=== PATIENT | male | born 1965 | race Caucasian/White ===

== ENCOUNTER 2021-02-19 13:39 | Observation (INO) | payer OTHER ==
[~2021-02-19] VITALS: Ht 182.9 cm; Wt 167.9 kg
[2021-02-19 14:04] LABS: HEMOGLOBIN 13.6 gm/dl (14.0-17.5); RED BLOOD COUNT 4.56 M/UL (4.20-5.50)
[2021-02-19 14:23] LABS: BUN/CREATININE RATIO 13 (0-10)
[2021-02-19] MEDS ORDERED: AMARYL 2MG TABLE2 MG PO (20:11)
[2021-02-19] MEDS ORDERED: HYDROCHLOROTHIA25 MG PO (20:12)
[2021-02-19] MEDS ORDERED: BENAZEPRIL HCL20 MG PO (20:12)
[2021-02-19] MEDS ORDERED: IBUPROFEN800 MG PO (20:13)
[2021-02-19] MEDS ORDERED: AMLODIPINE BESY10 MG PO (20:19)
[2021-02-19] MEDS ORDERED: METFORMIN HCL1000 MG PO (20:19)
[2021-02-19] MEDS ORDERED: OMEPRAZOLE20 MG PO (20:20)
[2021-02-19] MEDS ORDERED: QUETIAPINE FUM100 MG PO (20:20)
[2021-02-19] MEDS ORDERED: VITAMIN C1000 MG PO (20:20)
[2021-02-19] MEDS ORDERED: VITAMIN E1000 UNI1 PO (20:21)
[2021-02-19] MEDS ORDERED: APPLE CIDER VI500 MG PO (20:21)
[2021-02-19] MEDS ORDERED: VITAMIN B12-FO1 EACH PO (20:21)
[2021-02-22 06:58] LABS: WHITE BLOOD COUNT 12.5 K/UL (4.5-11.0)
[2021-02-22 06:59] LABS: HEMOGLOBIN 11.2 gm/dl (14.0-17.5); RED BLOOD COUNT 3.94 M/UL (4.20-5.50)
[2021-02-22 07:36] LABS: BUN/CREATININE RATIO 19 (0-10)
[2021-02-22] MEDS ORDERED: PERCOCET 5/325 T1 EA PO (12:52)
[2021-02-22] MEDS ORDERED: CYCLOBENZAPRINE10 MG PO (12:52)
== END 2021-02-22 17:01 | disposition home or self-care (01) ==
LOC: ER1 13:39 → CDU 17:30 → M/S 19:49
PROVIDERS: Emergency Medicine; ADMIT Surgery
DX: S22.42XA Multiple fractures of ribs, left side, initial encounter for closed fracture (principal); M19.042 Primary osteoarthritis, left hand; M19.041 Primary osteoarthritis, right hand; M17.12 Unilateral primary osteoarthritis, left knee; M19.022 Primary osteoarthritis, left elbow; U07.1 COVID-19; I10 Essential (primary) hypertension; E11.9 Type 2 diabetes mellitus without complications; K21.9 Gastro-esophageal reflux disease without esophagitis; V47.9XXA Unspecified car occupant injured in collision with fixed or stationary object in traffic accident, initial encounter
CPT/HCPCS: 36415; 36600; 70450; 70486; 71045; 71260; 72125; 72128; 72131; 73060; 73080; 73090; 73110; 73130; 73552; 73562; 80048; 80053; 81001; 82803; 82962; 83605; 85025; 85610; 85730; 86850; 86900; 86901; 90471; 96374; 96375; 96376; 97110-GP-CQ; 97162; 97530-GP-CQ; 99285; G0378; G0480; J1170; J2270; J2405; J2550; Q9967; U0002